=== PATIENT | male | born 1955 | race Caucasian/White ===

== ENCOUNTER 2025-05-13 21:13 | Outpatient (REF) | payer MEDICARE, SELFPAY ==
[2025-05-13 21:30] LABS: Abs Immature Grans 0.04 10^3/uL (0.0-0.06); HCT 51.2 % (40.0-50.0); HGB 17.6 g/dL (13.5-17.5); Immature Grans % 0.4 %; MCH 32.1 pg (27.0-33.0); MCHC 34.4 % (32.0-36.0); MCV 93 fL (80-95); MPV 10.5 fL (8.0-11.0); Platelet Count 261 10^3/uL (130-400); RBC 5.49 10^6/uL (4.36-5.78); RDW 14.4 % (11.8-14.1); RDW-SD 49.8 fL; WBC 9.88 10^3/uL (4.4-10.8)
[2025-05-13 21:44] LABS: TSH (W/Ref FT4) 4.31 uIU/mL (0.55-4.78)
[2025-05-13 21:58] LABS: ALT 34 U/L (10-49); AST 32 U/L (<34); Albumin 4.6 g/dL (3.2-5.0); Alkaline Phosphatase 42 U/L (46-116); Anion Gap 7.7 mmol/L (3-11); BUN 23 mg/dL (9-23); Bilirubin, Total 0.50 mg/dL (0.2-1.2); CO2 25.3 mmol/L (20.0-31.0); Calcium 9.4 mg/dL (8.3-10.6); Chloride 108 mmol/L (98-107); Glucose 87 mg/dL (74-106); Sodium 141 mmol/L (136-145); Total Protein 7.5 g/dL (5.7-8.2)
[2025-05-13 22:23] LABS: Potassium 4.5 mmol/L (3.5-5.1)
== END 2025-05-13 21:14 | disposition home or self-care (01) ==
LOC: LBN 21:13
PROVIDERS: Visit Provider Physician Assistant Medical
DX: I10 Essential (primary) hypertension (principal)
CPT/HCPCS: 80053; 84443; 85025